=== PATIENT | male | born 1975 | race Caucasian/White ===

== ENCOUNTER 2018-12-03 13:47 | Emergency (ER) | payer OTHER ==
[~2018-12-03] VITALS: Ht 170.2 cm; Wt 83.9 kg
[2018-12-03] MEDS ORDERED: SYNTHROID75 MCG (14:39)
== END 2018-12-03 16:32 | disposition home or self-care (01) ==
LOC: ER 13:47
DX: K29.70 Gastritis, unspecified, without bleeding (principal)

== ENCOUNTER → 2019-07-12 | Emergency (ER) | payer OTHER ==
[~2019-07-12] VITALS: Ht 170.2 cm; Wt 83.9 kg
[~2019-07-12] MED LIST: SYNTHROID75 MCG
== END | disposition home or self-care (01) ==
LOC: ER 21:21
DX: R31.9 Hematuria, unspecified (principal); R10.31 Right lower quadrant pain

== ENCOUNTER 2021-07-23 16:54 | Emergency (ER) | payer OTHER ==
[~2021-07-23] VITALS: Ht 172.7 cm; Wt 81.6 kg
[2021-07-23] MEDS ORDERED: OSEL75CA PO (20:17)
== END 2021-07-23 20:28 | disposition home or self-care (01) ==
LOC: ER 16:54
DX: J11.1 Influenza due to unidentified influenza virus with other respiratory manifestations (principal); J45.901 Unspecified asthma with (acute) exacerbation; Z03.818 Encounter for observation for suspected exposure to other biological agents ruled out

== ENCOUNTER 2022-02-08 11:27 | Emergency (ER) | payer OTHER ==
[~2022-02-08] VITALS: Ht 170.2 cm; Wt 81.6 kg
[~2022-02-08 11:27] MED LIST changes: +OSEL75CA PO
[2022-02-08] MEDS ORDERED: SYNTHROID50 MCG PO (11:55)
[2022-02-08] MEDS ORDERED: METFORMIN HCL500 M3 PO (11:56)
== END 2022-02-08 17:08 | disposition home or self-care (01) ==
LOC: ER 11:27
DX: R00.2 Palpitations (principal); R11.0 Nausea; R42 Dizziness and giddiness; M54.9 Dorsalgia, unspecified; I10 Essential (primary) hypertension; E11.9 Type 2 diabetes mellitus without complications; E03.9 Hypothyroidism, unspecified; Z88.0 Allergy status to penicillin

== ENCOUNTER 2023-09-20 18:32 | Emergency (ER) | payer OTHER ==
[~2023-09-20] VITALS: Ht 170.2 cm; Wt 83.9 kg
[~2023-09-20 18:32] MED LIST changes: +DICLOFENAC POTA50 MG PO; +KETO10TA2 PO; +METFORMIN HCL500 M3 PO; +METHOCARBAMOL500 MG PO; +NORFLEX100MG PO; +OMEPRAZOLE MAGN20 MG PO; +SYNTHROID50 MCG PO
[2023-09-20 20:19] LABS: HEMATOCRIT 43.9 % (39.0-48.0); HEMOGLOBIN 15.1 g/dL (13-16.00); MEAN CELL VOLUME 82.3 fL (80.0-100.00); MEAN CORPUSCULAR HEMOGLOBIN 28.4 pg (27.00-32.0); MEAN CORPUSCULAR HGB CONC 34.5 g/dl (32.0-36.0); PLATELET COUNT 246 K/uL (150-450); RED BLOOD COUNT 5.34 M/uL (4.00-6.00); RED CELL DISTRIBUTION WIDTH 13.7 % (11.5-14.5)
[2023-09-20 20:47] LABS: ALBUMIN 3.8 gm/dL (3.4-5.0); BILIRUBIN TOTAL 0.61 mg/dL (0.3-1.2); CALCIUM 9.3 mg/dL (8.5-10.1); CREATININE SERUM 0.85 mg/dL (0.70-1.30); GFR 96.2; GLOBULINA 3.8 G/DL (2.4-3.5); POTASSIUM 4.34 mEq/L (3.5-5.1); TOTAL PROTEIN 7.6 gm/dL (6.4-8.2)
== END 2023-09-20 21:45 | disposition home or self-care (01) ==
LOC: ER 18:32
PROVIDERS: Emergency Medicine
DX: R07.9 Chest pain, unspecified (principal); Z88.0 Allergy status to penicillin; E03.9 Hypothyroidism, unspecified

== ENCOUNTER 2023-11-02 12:44 | Outpatient (CLI) | payer OTHER | END 2023-11-02 12:55 | disposition home or self-care (01) | LOC: SONOGRAMA 12:44 | PROVIDERS: ATTEND Physical Medicine & Rehabilitation | DX: M25.512 Pain in left shoulder (principal) ==

== ENCOUNTER 2023-11-19 11:06 | Outpatient (CLI) | payer OTHER | END 2023-11-19 11:16 | disposition home or self-care (01) | LOC: MRI 11:06 | PROVIDERS: ATTEND Physical Medicine & Rehabilitation | DX: M54.6 Pain in thoracic spine (principal) ==

== ENCOUNTER 2024-11-20 16:02 | Emergency (ER) | payer OTHER ==
[~2024-11-20] VITALS: Ht 170.2 cm; Wt 83.9 kg
[~2024-11-20 16:02] MED LIST changes: +CIPRO500 MG PO; +PEPCID AC20 MG PO
[2024-11-20] MEDS ORDERED: KEPPRA500 MG PO (16:44)
[2024-11-20] MEDS ORDERED: [UNRECOGNIZED DRUG - OTHER] PO (16:45)
[2024-11-20] MEDS ORDERED: ECOTRIN81 MG PO (16:46)
[2024-11-20] MEDS ORDERED: ATACAND16 MG PO (16:46)
[2024-11-20] MEDS ORDERED: ORPHENADRINE CITRATE 30 MG/ML AMPUL IM STA (17:06)
[2024-11-20] MEDS ORDERED: METHYLPREDNISOLONE SOD SUCC 40 MG VIAL IV STA (17:07)
[2024-11-20] MEDS ORDERED: KETOROLAC TROMETHAMINE 15 MG VIAL IV STA (17:07)
[2024-11-20] MEDS ORDERED: TRAM1TAB98 PO (18:46)
== END 2024-11-20 19:21 | disposition home or self-care (01) ==
LOC: ER 16:04
DX: G89.11 Acute pain due to trauma (principal); S29.8XXA Other specified injuries of thorax, initial encounter; W18.39XA Other fall on same level, initial encounter; Y93.F9 Activity, other caregiving; Y92.091 Bathroom in other non-institutional residence as the place of occurrence of the external cause; Z88.0 Allergy status to penicillin

== ENCOUNTER 2024-12-22 19:43 | Inpatient (IN) | payer OTHER ==
[~2024-12-22] VITALS: Ht 170.2 cm; Wt 83.9 kg
[~2024-12-22 19:43] MED LIST changes: +ATACAND16 MG PO; +ECOTRIN81 MG PO; +KEPPRA500 MG PO; +TRAM1TAB98 PO; +[UNRECOGNIZED DRUG - OTHER] PO
--- NOTE | 2024-12-22 20:27 | NUR ---
PTE ALERTA Y ORIENTADO VERBALIZA TENER PROBLEMAS AL KANCHAN Rubin NOBLE ELIZABETH S/V Y SE UBICA
[2024-12-22] MEDS ORDERED: CEFTRIAXONE SODIUM 1,000 MG VIAL IM ONE (20:30)
[2024-12-22] MEDS ORDERED: CEFTRIAXONE SODIUM 1,000 MG VIAL ONE (21:18)
[2024-12-22 21:35] LABS: HEMATOCRIT 40.8 % (39.0-48.0); HEMOGLOBIN 13.7 g/dL (13-16.00); MEAN CELL VOLUME 82.9 fL (80.0-100.00); MEAN CORPUSCULAR HGB CONC 33.7 g/dl (32.0-36.0); PLATELET COUNT 242 K/uL (150-450); RED BLOOD COUNT 4.92 M/uL (4.00-6.00)
[2024-12-22 21:53] LABS: URINE APPEARANCE Clear; URINE BILIRRUBIN Negative (NEGATIVE); URINE BLOOD NHT; URINE COLOR Yellow; URINE GLUCOSE Negative (NEGATIVE); URINE KETONE Negative (NEGATIVE); URINE LEUKOCYTE Large; URINE NITRATE Negative; URINE PROTEIN Negative (NEGATIVE); URINE UROBILINOGEN 0.2 E.U./dl
[2024-12-22 21:57] LABS: URINE BACTERIA 442.8 uL (0.0-1933); URINE EPITHELIAL CELLS 6.4 uL (0.0-38.8); URINE RBC 6.4 uL (0.0-20.8); URINE WBC 478.6 uL (0.0-23.2)
[2024-12-22 22:29] LABS: ALBUMIN 4.3 gm/dL (3.4-5.0); BILIRUBIN TOTAL 0.65 mg/dL (0.3-1.2); CALCIUM 9.8 mg/dL (8.5-10.1); CREATININE SERUM 0.8 mg/dL (0.70-1.30); GFR 102.32; GLOBULINA 3.6 G/DL (2.4-3.5); POTASSIUM 4.65 mEq/L (3.5-5.1); TOTAL PROTEIN 7.9 gm/dL (6.4-8.2)
[2024-12-22 22:30] LABS: PROSTATIC SPECIFIC ANTIGEN 12.2 NG/ML (0.010-4.00)
--- NOTE | 2024-12-22 22:51 | NUR ---
SE ORIENTA PTE SOBRE [place] MEDICO Y PTE REFIERE ENTENDER. SE ADMINISTRAN MEDICAMENTOS Y SE REALIZA JOSE ANGEL DE MUESTRAS BAJO MEDIDAS ASEPTICAS.
[2024-12-22] MEDS ORDERED: ONDANSETRON HCL 4 MG in 0.9 % SODIUM CHLORIDE 50 ML IV PRN (23:45)
[2024-12-22] MEDS ORDERED: 0.9 % SODIUM CHLORIDE 1,000 ML IV SCH (23:45)
[2024-12-22] MEDS ORDERED: ACETAMINOPHEN 500 MG GEL..CAP PO PRN (23:45)
[2024-12-22] MEDS ORDERED: FAMOTIDINE/PF 20 MG in 0.9 % SODIUM CHLORIDE 8 ML IV PUSH SCH (23:48)
[2024-12-22] MEDS ORDERED: levoFLOXacin IN DEXTROSE 5 % 150 ML IV SCH (23:48)
[2024-12-22] MEDS ORDERED: TAMSULOSIN HCL 0.4 MG CAP PO SCH (23:49)
[2024-12-23 03:25] LABS: INR 1.01; PARTIAL THROMBOPLASTIN TIME 28.8 SECONDS (22.0-34.0)
[2024-12-23 06:09] VITALS: BP 116/69
[2024-12-23] MEDS ORDERED: CANDESARTAN CILEXETIL 8 MG TAB PO SCH (09:00)
[2024-12-23] MEDS ORDERED: ENOXAPARIN SODIUM 40 MG/0.4 ML SYRINGE SUBCUTANEO SCH (09:00)
[2024-12-23 09:06] VITALS: BP 105/64
[2024-12-23] MEDS ORDERED: LACTOBACILLUS ACIDOPHILUS 1 CAP CAP PO SCH (17:00)
[2024-12-23 18:13] VITALS: BP 132/73; O2SAT 97
[2024-12-24 01:00] VITALS: BP 119/73; O2SAT 95
[2024-12-24] MEDS ORDERED: FAMOTIDINE/PF 20 MG/2 ML VIAL ONE (07:59)
[2024-12-24 10:08] VITALS: BP 126/81; O2SAT 96
[2024-12-24] MEDS ORDERED: DIPHENHYDRAMINE HCL 50 MG/ML VIAL 1ML IV STA (14:30)
[2024-12-24] MEDS ORDERED: METHYLPREDNISOLONE SOD SUCC 40 MG VIAL IV STA (14:30)
[2024-12-24 16:51] VITALS: BP 131/76; O2SAT 96
[2024-12-25 02:05] VITALS: BP 131/73; O2SAT 96
[2024-12-25 07:00] LABS: HEMATOCRIT 35.7 % (39.0-48.0); HEMOGLOBIN 12.4 g/dL (13-16.00); MEAN CELL VOLUME 82.2 fL (80.0-100.00); MEAN CORPUSCULAR HEMOGLOBIN 28.5 pg (27.00-32.0); MEAN CORPUSCULAR HGB CONC 34.7 g/dl (32.0-36.0); PLATELET COUNT 240 K/uL (150-450); RED BLOOD COUNT 4.34 M/uL (4.00-6.00); RED CELL DISTRIBUTION WIDTH 13.6 % (11.5-14.5)
[2024-12-25 07:15] LABS: ERYTHROCYTE SEDIMENTATION RATE 95 mm/hr
[2024-12-25 07:37] LABS: ALBUMIN 2.8 gm/dL (3.4-5.0); BILIRUBIN TOTAL 0.4 mg/dL (0.3-1.2); CALCIUM 9.1 mg/dL (8.5-10.1); CREATININE SERUM 0.65 mg/dL (0.70-1.30); GFR 130.03; GLOBULINA 3.7 G/DL (2.4-3.5); POTASSIUM 4.67 mEq/L (3.5-5.1); TOTAL PROTEIN 6.5 gm/dL (6.4-8.2)
[2024-12-25 07:39] LABS: C-REACTIVE PROTEIN 15.2 MG/DL (0.00-0.29)
[2024-12-25] MEDS ORDERED: ONDANSETRON HCL 2 MG/ML VIAL ONE (08:10)
[2024-12-25] MEDS ORDERED: FAMOTIDINE/PF 20 MG/2 ML VIAL ONE (08:11)
[2024-12-25 10:21] VITALS: BP 144/77; O2SAT 98
[2024-12-25] MEDS ORDERED: MEROPENEM 500 MG/VIAL VIAL IV STA (12:03)
[2024-12-25 17:44] VITALS: BP 146/87; O2SAT 97
[2024-12-25] MEDS ORDERED: MEROPENEM 500 MG/VIAL VIAL IV SCH (18:00)
[2024-12-26 01:13] VITALS: BP 126/78
[2024-12-26 07:49] VITALS: BP 144/87; O2SAT 96
[2024-12-26 17:26] VITALS: BP 131/82; O2SAT 97
[2024-12-27 00:33] VITALS: BP 118/69
[2024-12-27 08:12] LABS: HEMATOCRIT 39.6 % (39.0-48.0); HEMOGLOBIN 13.2 g/dL (13-16.00); MEAN CELL VOLUME 83.8 fL (80.0-100.00); MEAN CORPUSCULAR HGB CONC 33.4 g/dl (32.0-36.0); PLATELET COUNT 287 K/uL (150-450); RED BLOOD COUNT 4.72 M/uL (4.00-6.00)
[2024-12-27 08:27] LABS: ERYTHROCYTE SEDIMENTATION RATE 43 mm/hr
[2024-12-27 08:29] VITALS: BP 137/76
[2024-12-27 19:05] VITALS: BP 150/69; O2SAT 100
[2024-12-28 00:57] VITALS: BP 132/80; O2SAT 97
[2024-12-28 08:36] VITALS: BP 133/85
[2024-12-28 10:04] LABS: PH,URINE 6.5 (5.0-8.0); URINE APPEARANCE Clear; URINE BILIRRUBIN Negative (NEGATIVE); URINE BLOOD Negative; URINE COLOR Yellow; URINE GLUCOSE Negative (NEGATIVE); URINE KETONE Negative (NEGATIVE); URINE LEUKOCYTE Negative; URINE NITRATE Negative; URINE PROTEIN Negative (NEGATIVE); URINE UROBILINOGEN 0.2 E.U./dl
[2024-12-28 10:13] LABS: URINE BACTERIA 1.2 uL (0.0-1933); URINE EPITHELIAL CELLS 0.7 uL (0.0-38.8); URINE WBC 1.7 uL (0.0-23.2)
[2024-12-28 16:45] VITALS: BP 156/88
[2024-12-29 01:01] VITALS: BP 130/72; O2SAT 96
[2024-12-29 08:07] VITALS: BP 155/94; O2SAT 96
[2024-12-29] MEDS ORDERED: AMINO ACIDS 1 EACH TABLET PO SCH (12:37)
[2024-12-29 16:48] VITALS: BP 162/92
[2024-12-31 02:21] VITALS: BP 135/87; O2SAT 96
[2024-12-31 09:03] VITALS: BP 148/100
[2024-12-31 18:10] VITALS: BP 154/85; O2SAT 96
[2025-01-01 02:43] VITALS: BP 145/80; O2SAT 95
[2025-01-01 06:28] LABS: HEMATOCRIT 38.5 % (39.0-48.0); HEMOGLOBIN 12.9 g/dL (13-16.00); MEAN CORPUSCULAR HEMOGLOBIN 28.1 pg (27.00-32.0); MEAN CORPUSCULAR HGB CONC 33.4 g/dl (32.0-36.0); PLATELET COUNT 259 K/uL (150-450); RED BLOOD COUNT 4.58 M/uL (4.00-6.00); RED CELL DISTRIBUTION WIDTH 14.1 % (11.5-14.5)
[2025-01-01 06:49] LABS: ERYTHROCYTE SEDIMENTATION RATE 25 mm/hr
[2025-01-01 09:10] LABS: % FREE PSA 4.6 % (.); free psa 2.13 ng/mL; total psa 46.5 ng/mL (0.0-4.0)
[2025-01-01 09:49] VITALS: BP 134/74; O2SAT 98
[2025-01-01] MEDS ORDERED: INTESTINEX680 M1 PO (12:37)
[2025-01-01] MEDS ORDERED: TAMS0.4C PO (12:37)
== END 2025-01-01 15:02 | disposition home or self-care (01) | DRG 690 ==
LOC: ER 19:44 → MEDI 23:49 → MEDJ 12-25 13:55
PROVIDERS: General Practice; Internal Medicine Infectious Disease; ADMIT Internal Medicine; ATTEND Internal Medicine
PROC: BW21ZZZ Computerized Tomography (CT Scan) of Abdomen and Pelvis (ICD-10-PCS; 2024-12-24)
PROC: 8E0ZXY6 Isolation (ICD-10-PCS; principal; 2024-12-25)
PROC: 02HV33Z Insertion of Infusion Device into Superior Vena Cava, Percutaneous Approach (ICD-10-PCS; 2024-12-30)
DX: N39.0 Urinary tract infection, site not specified (principal); N41.0 Acute prostatitis; Z16.12 Extended spectrum beta lactamase (ESBL) resistance; N20.0 Calculus of kidney; I10 Essential (primary) hypertension; E11.9 Type 2 diabetes mellitus without complications; Z79.4 Long term (current) use of insulin; E86.0 Dehydration; B96.20 Unspecified Escherichia coli [E. coli] as the cause of diseases classified elsewhere; N40.0 Benign prostatic hyperplasia without lower urinary tract symptoms

== ENCOUNTER 2025-05-05 08:14 | Outpatient (CLI) | payer OTHER ==
[~2025-05-05 08:14] MED LIST changes: +INTESTINEX680 M1 PO; +TAMS0.4C PO
== END 2025-05-05 09:04 | disposition home or self-care (01) ==
LOC: SONOGRAMA 08:14
PROVIDERS: ATTEND Internal Medicine
DX: E04.1 Nontoxic single thyroid nodule (principal)